=== PATIENT | female | born 2000 | race Caucasian/White ===

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

== ENCOUNTER 2021-04-06 15:27 | Emergency (ER) | payer OTHER ==
[2021-04-06 15:44] VITALS: BP 107/70; PULSE 74; TEMP 98.3; BMI 23.2
[2021-04-06 17:02] LABS: PH,URINE 5.5 (5.0-8.0); URINE APPEARANCE CLEAR; URINE BILIRUBIN NEGATIVE (NEGATIVE); URINE COLOR YELLOW; URINE GLUCOSE (UA) NEGATIVE (NEGATIVE); URINE KETONE NEGATIVE (NEGATIVE); URINE LEUK ESTERASE 1+ (NEGATIVE); URINE NITRITE NEGATIVE (NEGATIVE); URINE PROTEIN NEGATIVE (NEGATIVE); URINE UROBILINOGEN 0.2 mg/dL (0.2-1.0)
== END 2021-04-06 17:32 | disposition home or self-care (01) ==
LOC: JER 15:27
DX: N39.0 Urinary tract infection, site not specified (principal)
CPT/HCPCS: 81003; 84703; 87086; 99283-25

== ENCOUNTER 2021-04-13 09:24 | Emergency (ER) | payer OTHER ==
[2021-04-13 09:28] VITALS: BMI 22.2
[2021-04-13] MEDS ORDERED: SODIUM CHLORIDE 0.9% 500 ML INFUS.BAG IV ONE (10:06)
[2021-04-13] MEDS ORDERED: KETOROLAC TROMETHAMINE 30 MG/1 ML VIAL IVPB ONE (10:06)
[2021-04-13] MEDS ORDERED: CEFTRIAXONE 500 MG in DEXTROSE 5%-WATER - 50 ML IVPB ONE (10:52)
[2021-04-13] MEDS ORDERED: KETOROLAC TROMETHAMINE 30 MG/1 ML VIAL ONE (12:14)
[2021-04-13] MEDS ORDERED: cefTRIAXone SODIUM 1 GM VIAL ONE (12:14)
[2021-04-13 12:52] LABS: EPI CELLS 36 /uL (0-25.1); HYALINE CASTS 3 /uL (0-3.1); PH,URINE 5.5 (5.0-8.0); URINE APPEARANCE CLEAR; URINE BACTERIA 287 /uL (0-1359); URINE BILIRUBIN NEGATIVE (NEGATIVE); URINE COLOR YELLOW; URINE GLUCOSE (UA) NEGATIVE (NEGATIVE); URINE KETONE NEGATIVE (NEGATIVE); URINE LEUK ESTERASE 2+ (NEGATIVE); URINE NITRITE NEGATIVE (NEGATIVE); URINE PROTEIN NEGATIVE (NEGATIVE); URINE RBC 15 /uL (0-23.9); URINE UROBILINOGEN 0.2 mg/dL (0.2-1.0); URINE WBC 35 /uL (0-25.8)
[2021-04-13 12:55] LABS: HEMATOCRIT 40.4 % (32.4-45.2); HEMOGLOBIN 14.1 GM/dL (10.7-15.3); MCH 32.1 pg (25.7-33.7); MCHC 34.9 g/dl (32.0-36.0); MEAN CELL VOLUME 91.9 fl (80-96); MEAN PLT VOLUME 8.1 fl (7.5-11.1); PLATELET COUNT 183 10^3/uL (134-434); RDW 12.7 % (11.6-15.6); WHITE BLOOD COUNT 7.3 K/mm3 (4.0-10.0)
[2021-04-13 13:24] LABS: ALBUMIN 4.3 g/dl (3.4-5.0); ANISOCYTOSIS 0; CALCIUM 8.8 mg/dL (8.5-10.1); MACROCYTOSIS 0; PLATELET ESTIMATE NORMAL
[2021-04-13 13:25] LABS: BLOOD UREA NITROGEN 7.2 mg/dL (7-18)
[2021-04-13 13:28] LABS: CREATININE 0.8 mg/dL (0.55-1.3)
[2021-04-13 13:31] LABS: BILIRUBIN,TOTAL 2.4 mg/dL (0.2-1); TOT PROT 8.1 g/dl (6.4-8.2)
[2021-04-13 15:01] VITALS: BP 118/57; PULSE 95; TEMP 98.6
== END 2021-04-13 15:01 | disposition home or self-care (01) ==
LOC: JER 09:24
PROC: 3E03329 Introduction of Other Anti-infective into Peripheral Vein, Percutaneous Approach (ICD-10-PCS; principal; 2021-04-13)
PROC: 3E0333Z Introduction of Anti-inflammatory into Peripheral Vein, Percutaneous Approach (ICD-10-PCS; 2021-04-13)
DX: R10.2 Pelvic and perineal pain (principal)
CPT/HCPCS: 36415; 76830-TC; 80053; 81003; 84703; 85025; 87070; 87077; 87086; 87205; 87491; 87591; 99284-25

== ENCOUNTER 2022-09-19 09:05 | Emergency (ER) | payer OTHER ==
[2022-09-19 09:21] VITALS: BP 116/75; PULSE 64; RESP 18; BMI 25.8
[2022-09-19 09:23] VITALS: TEMP 97.9
[2022-09-19] MEDS ORDERED: MAG HYDROX/AL HYDROX/SIMETH 30 ML UNIT-DOSE CUP PO ONE (10:34)
[2022-09-19] MEDS ORDERED: MINERAL OIL ENEMA 133 ML ENEMA PR ONE (10:34)
[2022-09-19] MEDS ORDERED: MAGNESIUM HYDROX 2400MG/30ML ORAL SUSPENSION 30 ML CUP PO ONE (10:34)
[2022-09-19] MEDS ORDERED: MAG HYDROX/AL HYDROX/SIMETH 30 ML UNIT-DOSE CUP ONE (10:39)
[2022-09-19 11:46] LABS: URINE APPEARANCE CLEAR; URINE BILIRUBIN NEGATIVE (NEGATIVE); URINE COLOR YELLOW; URINE GLUCOSE (UA) NEGATIVE (NEGATIVE); URINE KETONE NEGATIVE (NEGATIVE); URINE LEUK ESTERASE NEGATIVE (NEGATIVE); URINE NITRITE NEGATIVE (NEGATIVE); URINE PROTEIN NEGATIVE (NEGATIVE); URINE UROBILINOGEN 0.2 mg/dL (0.2-1.0)
[2022-09-19 12:03] LABS: BASO % 0.6 % (0-2.0); EOS % 0.4 % (0-4.5); HEMATOCRIT 40.2 % (32.4-45.2); HEMOGLOBIN 14.2 GM/dL (10.7-15.3); LYMPH % 26.9 % (8-40); MCH 30.1 pg (25.7-33.7); MCHC 35.4 g/dl (32.0-36.0); MEAN CELL VOLUME 85.1 fl (80-96); MEAN PLT VOLUME 7.8 fl (7.5-11.1); MONO % 5.6 % (3.8-10.2); NEUT % 66.5 % (42.8-82.8); PLATELET COUNT 238 10^3/uL (134-434); RBC 4.72 M/mm3 (3.60-5.2); RDW 13.1 % (11.6-15.6); WHITE BLOOD COUNT 7.6 K/mm3 (4.0-10.0)
[2022-09-19 12:22] LABS: ALBUMIN 4.5 g/dl (3.4-5.0); BLOOD UREA NITROGEN 11.8 mg/dL (7-18); CALCIUM 9.2 mg/dL (8.5-10.1)
[2022-09-19 12:26] LABS: CREATININE 0.8 mg/dL (0.55-1.3)
[2022-09-19 12:28] LABS: BILIRUBIN,TOTAL 1.4 mg/dL (0.2-1); TOT PROT 8.1 g/dl (6.4-8.2)
== END 2022-09-19 15:13 | disposition home or self-care (01) ==
LOC: JER 09:05
DX: K59.00 Constipation, unspecified (principal)
CPT/HCPCS: 36415; 74177-TC; 80053; 81003; 84703; 85025; 99285-25; Q9967